=== PATIENT | male | born 1950 | race Two or more races ===

== ENCOUNTER 2017-05-02 13:32 | Emergency (ER) | payer SELFPAY ==
--- NOTE | 2017-05-02 14:11 | ER Document Report ---
ED Cardiac - General Chief Complaint: Chest Pain Stated Complaint: CHEST PAIN Time Seen by Provider: 05/02/17 13:58 Mode of Arrival: Ambulatory Information source: Patient Notes: Patient is a 66-year-old male who presents to the ER today for his pulse being low. Patient speaks Romansh and we had to use a carpet cleaner for this visit. Patient states that 6 years ago he had open heart surgery and has an artificial valve and is on warfarin for that. He does take metoprolol and amlodipine for blood pressure. He states that he took his blood pressure today as he does every day and that his pulse was 36 bpm. He states that that is the reason he came in today. He denies any chest pain, shortness of breath, nausea, vomiting or any other symptoms. Friend who is with him states that he has been sleeping a lot more that she has noticed. He admits to some slight fatigue over the past couple of months. He does not have a primary care provider here. All of his medical history has Taken place in [place]. Past Medical History - General Information source: Patient - Social History Smoking Status: Former Smoker Family History: Reviewed & Not Pertinent Review of Systems - Review of Systems Constitutional: No symptoms reported EENT: No symptoms reported Cardiovascular: See HPI Respiratory: No symptoms reported Gastrointestinal: No symptoms reported Genitourinary: No symptoms reported Male Genitourinary: No symptoms reported Musculoskeletal: No symptoms reported Skin: No symptoms reported Hematologic/Lymphatic: No symptoms reported Neurological/Psychological: No symptoms reported Physical Exam - Vital signs Vitals: Resp 24 H 05/02/17 14:03 - Notes Notes: PHYSICAL EXAMINATION: GENERAL: Well-appearing and in no acute distress. HEAD: Atraumatic, normocephalic. EYES: Pupils equal round and reactive to light, extraocular movements intact, sclera anicteric, conjunctiva are normal. NECK: Normal range of motion, supple without lymphadenopathy LUNGS: CTAB and equal. No wheezes rales or rhonchi. HEART: Bradycardic with slightly irregular rhythm without murmurs ABDOMEN: Soft, no tenderness. No guarding, no rebound BACK: no vertebral tenderness, normal ROM GI/: no CVA tenderness EXTREMITIES: Normal range of motion, no pitting edema. No cyanosis. NEUROLOGICAL: Cranial nerves grossly intact. Normal sensory/motor exams. PSYCH: Normal mood, normal affect. SKIN: Warm, Dry, normal turgor, no rashes or lesions noted Course - Re-evaluation Re-evalutation: 05/02/17 17:51 cardiac enzymes are mildly elevated at 0.040 troponin, his kidney function is abnormal with a creatinine of 1.65 and a BUN of 32, but pt has never been here before and give me history of CHF likely causing his troponin to be elevated and admits to CKD in the past. I pleaded with pt to stay to have second troponin drawn but he refuses, sitting up in bed getting dressed, wanting to go home. He says "My heart is fine." He is not angry, just only came for his heart rate and no chest pain so he refuses to get further labs evaluating possible heart attack. I encouraged strongly for him to go to primary care and gave him information for a free clinic in [facility]. He says he will go. Friend says she will urge him. With all of his medical issues he needs to be seeing a primary care provider regularly. I advised he stop his metoprolol immediately as my attending and I believe this is what's causing his bradycardia. His heart rate was in the 50's the entire time here with no distress or pain. 05/02/17 17:52 05/02/17 17:52 - Vital Signs Vital signs: Temp Pulse Resp BP Pulse Ox 25 H 122/50 L 05/02/17 16:33 05/02/17 16:33 - Laboratory Result Diagrams: 05/02/17 14:00 05/02/17 15:04 Laboratory results interpreted by me: 05/02/17 05/02/17 14:00 15:04 Hgb 11.2 L Hct 34.5 L MCV 77 L MCH 24.8 L RDW 17.9 H Potassium 3.5 L BUN 32 H Creatinine 1.65 H Est GFR ( Amer) 51 L Est GFR (Non-Af Amer) 42 L Glucose 240 H Direct Bilirubin 0.5 H AST 13 L Total Protein 6.2 L Albumin 3.4 L Discharge - Discharge Clinical Impression: Heart rate slow, Ventricular bigeminy, On beta dianelys at home Condition: Stable Disposition: HOME, SELF-CARE Additional Instructions: STOP TAKING METOPROLOL! IT IS WHAT'S CAUSING YOUR HEART RATE TO BE LOW. Return immediately for any new or worsening symptoms. Follow up a primary care provider as soon as possible, call demarorrow to make followup appointment. Referrals: [facility] [Provider Group] - Follow up as needed
[2017-05-02 14:31] LABS: ABSOLUTE EOSINOPHILS # (AUTO) 0.1 10^3/uL (0.0-0.6); ABSOLUTE LYMPHOCYTES (AUTO) 1.6 10^3/uL (0.5-4.7); ABSOLUTE MONOCYTES (AUTO) 0.6 10^3/uL (0.1-1.4); ABSOLUTE NEUT (AUTO) 5.5 10^3/uL (1.7-8.2); BASOPHILS % (AUTO) 0.5 % (0-2); EOSINOPHILS % (AUTO) 1.4 % (0-6); HEMATOCRIT 34.5 % (37.9-51.0); HEMOGLOBIN 11.2 g/dL (13.5-17.0); HGB HCT DIFFERENCE -0.9; MEAN CORPUSCULAR HEMOGLOBIN 24.8 pg (27.0-33.4); MEAN CORPUSCULAR HGB CONC 32.5 g/dL (32.0-36.0); MEAN CORPUSCULAR VOLUME 77 fl (80-97); MONOCYTES % (AUTO) 8.3 % (3-13); RED BLOOD COUNT 4.51 10^6/uL (4.35-5.55); RED CELL DISTRIBUTION WIDTH 17.9 % (11.5-14.0); SEGMENTED NEUTROPHILS % (AUTO) 69.8 % (42-78); WHITE BLOOD COUNT 7.8 10^3/uL (4.0-10.5)
--- NOTE | 2017-05-02 14:54 | RADIOLOGY REPORT (SQ) ---
EXAM DESCRIPTION: CHEST SINGLE VIEW COMPLETED DATE/TIME: 05/02/2017 2:38 pm REASON FOR STUDY: cp COMPARISON: None. EXAM PARAMETERS: NUMBER OF VIEWS: One view. TECHNIQUE: Single frontal radiographic view of the chest acquired. RADIATION DOSE: NA LIMITATIONS: None. FINDINGS: LUNGS AND PLEURA: No opacities, masses or pneumothorax. No pleural effusion. MEDIASTINUM AND HILAR STRUCTURES: No masses. Contour normal. HEART AND VASCULAR STRUCTURES: Cardiac enlargement. Mild pulmonary vascular congestion. No tammy CH F. BONES: No acute findings. HARDWARE: Sternotomy wires. OTHER: No other significant finding. IMPRESSION: Cardiac enlargement without CHF. TECHNICAL DOCUMENTATION: JOB ID: [id number]
[2017-05-02 15:33] LABS: ALANINE AMINOTRANSFERASE 21 U/L (21-72); ALBUMIN 3.4 g/dL (3.5-5.0); ALKALINE PHOSPHATASE 91 U/L (38-126); ANION GAP 13 (5-19); ASPARTATE AMINO TRANSFERASE 13 U/L (17-59); BILIRUBIN,DIRECT 0.5 mg/dL (0.0-0.4); BILIRUBIN,TOTAL 0.9 mg/dL (0.2-1.3); BLOOD UREA NITROGEN 32 mg/dL (7-20); CALCIUM 8.9 mg/dL (8.4-10.2); CARBON DIOXIDE 23 mmol/L (22-30); CHLORIDE 103 mmol/L (98-107); CREATINE KINASE 73 U/L (55-170); CREATININE RESULT 1.65 mg/dL (0.52-1.25); GLUCOSE 240 mg/dL (75-110); LIPASE 153.5 U/L (23-300); POTASSIUM 3.5 mmol/L (3.6-5.0); SODIUM 138.6 mmol/L (137-145); TOTAL PROTEIN 6.2 g/dL (6.3-8.2)
--- NOTE | 2017-05-02 15:38 | EKG REPORT ---
SEVERITY:- ABNORMAL ECG - SINUS RHYTHM VENTRICULAR PREMATURE COMPLEX PROBABLE INFERIOR INFARCT, AGE INDETERMINATE ABNRM R PROG, CONSIDER ASMI OR LEAD PLACEMENT : Confirmed by: Lindsay Holt 02-May-2017 15:37:45
[2017-05-02 15:45] LABS: CREATINE KINASE MB 1.55 ng/mL (<4.55)
[2017-05-02 16:02] LABS: TROPONIN I 0.04 ng/mL
[2017-05-02 16:46] VITALS: BP 122/50
== END 2017-05-02 16:45 | disposition home or self-care (01) ==
LOC: ER 13:32
DX: R00.1 Bradycardia, unspecified (principal); R00.8 Other abnormalities of heart beat; R07.9 Chest pain, unspecified; Z79.01 Long term (current) use of anticoagulants; Z79.899 Other long term (current) drug therapy
CPT/HCPCS: 36415; 71010; 80053; 82550; 82553; 83690; 84484; 85025; 93005; 93010; 99285